=== PATIENT | male | born 1980 | race African-American/Black ===

== ENCOUNTER 2017-08-17 12:48 | Emergency (ER) | payer SELFPAY ==
[2017-08-17] MEDS ORDERED: Lidocaine/EPINEPHrine/Tetracaine Soln 1 ML TOP ONE (13:03)
[2017-08-17] MEDS ORDERED: Lidocaine 1% with EPINEPHrine 1:100,000 20 ML MDV INJECT ONE (13:03)
--- NOTE | 2017-08-17 14:03 | EDM.PDOC ---
ED HPI GENERAL MEDICAL PROBLEM - General Chief Complaint: Skin Complaint Stated Complaint: LUMP ON SIDE OF FACE Time Seen by Provider: 08/17/17 12:57 Source of Information: Reports: Patient History Limitations: Reports: No Limitations - History of Present Illness INITIAL COMMENTS - FREE TEXT/NARRATIVE: The patient presents with an abscess to the left jaw. This has been going on for 3 days. He had this drained before about a year and a half ago. He has no fever, chills Onset: Gradual Duration: Day(s): (3) Location: Reports: Face (Left jaw) Quality: Reports: Sharp Severity: Moderate Improves with: Reports: None Worsens with: Reports: None Associated Symptoms: Reports: No Other Symptoms Left Face Pain Score (Numeric/FACES): 9 - Related Data Allergies Allergy/AdvReac Type Severity Reaction Status Date / Time No Known Allergies Allergy Verified 08/17/17 12:55 Home Meds: Home Meds Doxycycline [Vibramycin] 100 mg PO BID #20 cap 08/17/17 [Rx] Hydrocodone/Acetaminophen [Hydrocodon-Acetaminophen 5-325] 1 - 2 each PO Q6HR PRN #10 tablet 08/17/17 [Rx] Past Medical History - Past Health History Medical/Surgical History: Denies Medical/Surgical History Social & Family History - Tobacco Use Smoking Status *Q: Never Smoker - Caffeine Use Caffeine Use: Reports: Coffee - Recreational Drug Use Recreational Drug Use: No ED ROS GENERAL - Review of Systems Review Of Systems: See Below Constitutional: Reports: No Symptoms HEENT: Reports: Other (Left jaw abscess) Respiratory: Reports: No Symptoms Cardiovascular: Reports: No Symptoms Endocrine: Reports: No Symptoms GI/Abdominal: Reports: No Symptoms : Reports: No Symptoms ED EXAM, SKIN/RASH Exam: See Below Exam Limited By: No Limitations General Appearance: Alert, No Apparent Distress Ears: Normal External Exam Nose: Normal Inspection Throat/Mouth: Normal Inspection Head: Other (Abscess to the left jaw with fluctuance) Neck: Normal Inspection Respiratory/Chest: No Respiratory Distress, Lungs Clear, Normal Breath Sounds Cardiovascular: Regular Rate, Rhythm, No Edema, No Murmur GI/Abdominal: Soft, Non-Tender, No Organomegaly, No Mass Back Exam: Normal Inspection Extremities: Normal Inspection Neurological: Alert, Oriented, No Motor/Sensory Deficits ED SKIN PROCEDURES - I&D Site: Left jaw Skin Prep: Saline Local Anesthesia: Lidocaine: 1% with EPI (and LET) Local Anesthetic Volume: 2cc Area Incised With: 11 Blade Drainage: Purulent, Large Amount Probed to Break Up Loculations: Yes Packed With: 1/2 in. Iodoform Complications: No Course - Vital Signs Last Recorded V/S: Last Vital Signs Temp 97.5 F 08/17/17 12:52 Pulse 57 L 08/17/17 12:52 Resp 16 08/17/17 12:52 BP 123/87 08/17/17 12:52 Pulse Ox 99 08/17/17 12:52 - Orders/Labs/Meds Meds: Medications Discontinued Medications Generic Name Dose Route Start Last Admin Trade Name Freq PRN Reason Stop Dose Admin Lidocaine/Epinephrine 20 ml 08/17/17 13:03 08/17/17 13:14 Xylocaine 1% With Epinephrine 1:100,000 INJECT 08/17/17 13:04 20 ml ONETIME ONE Administration Lidocaine/Tetracaine 1 ml 08/17/17 13:03 08/17/17 13:14 Let Soln TOP 08/17/17 13:04 1 ml ONETIME ONE Administration - Re-Assessments/Exams Free Text/Narrative Re-Assessment/Exam: 08/17/17 14:08 I put some let on the abscess and then I used an 11 blade to open up the wound. I packed it. I will get him on some doxycycline and something for pain. Departure - Departure Time of Disposition: 14:10 Disposition: Home, Self-Care 01 Condition: Good Clinical Impression: Abscess - Discharge Information Prescriptions: Hydrocodone/Acetaminophen [Hydrocodon-Acetaminophen 5-325] 1 - 2 each PO Q6HR PRN #10 tablet PRN Reason: Pain Doxycycline [Vibramycin] 100 mg PO BID #20 cap Referrals: PCP,None [Primary Care Provider] - Oscar Briones MD [Physician] - 1 Week Forms: ED Department Discharge Additional Instructions: Put warm compresses on your face 3 times per day for 5 days. Keep the packing in for 3 to 5 days. It may come out then. Follow up with Dr Briones in 1 to 2 weeks. Take the doxycycline 2 times per day for 10 days. If you have pain, take the hydrocodone as needed. Wash your face with warm soapy water 2 times per day.
== END 2017-08-17 14:23 | disposition home or self-care (01) ==
LOC: JD.ED 12:48
DX: M27.2 Inflammatory conditions of jaws (principal)
CPT/HCPCS: 10061; 87075; 87205; 99283; A9270; 10060; 87077; 87186

== ENCOUNTER 2017-11-01 17:06 | Emergency (ER) | payer SELFPAY ==
--- NOTE | 2017-11-01 18:25 | EDM.PDOC ---
ED HPI GENERAL MEDICAL PROBLEM - General Chief Complaint: Skin Complaint Stated Complaint: BITE ON RIGHT LEG Time Seen by Provider: 11/01/17 18:25 Source of Information: Reports: Patient History Limitations: Reports: No Limitations - History of Present Illness INITIAL COMMENTS - FREE TEXT/NARRATIVE: 37-year-old male presents the ED with a painful swelling on the right lateral thigh. He states this was noted at least 3-1/2 days ago and is progressively enlarging and is becoming much more painful. He is not sure if he suffered a spider bite or what the cause of injury was. He doesn't feel systemically ill with fever chills. Just at the area is very painful especially if it gets bumped. Has had no previous similar problems. His knowledge he is not immunocompromised. Onset: Gradual Onset Date: 10/29/17 Duration: Day(s):, Getting Worse Location: Reports: Upper Extremity, Right (Right lateral mid thigh) Quality: Reports: Ache, Pressure, Throbbing Severity: Moderate (8 out of 10) Improves with: Reports: None Worsens with: Reports: Other, Movement Context: Denies: Activity, Exercise (It if the area gets bumped.), Lifting, Sick Contact, Other Associated Symptoms: Reports: No Other Symptoms. Denies: Fever/Chills, Headaches, Loss of Appetite, Malaise, Nausea/Vomiting, Rash, Seizure, Shortness of Breath, Syncope, Weakness Treatments [employer]ATOR: Reports: NSAIDS Right Upper Posterior Leg Pain Score (Numeric/FACES): 7 - Related Data Allergies Allergy/AdvReac Type Severity Reaction Status Date / Time No Known Allergies Allergy Verified 11/01/17 17:38 Home Meds: Home Meds Clindamycin HCl 300 mg PO TID #21 capsule 11/01/17 [Rx] Doxycycline [Vibramycin] 100 mg PO DAILY #24 cap 11/01/17 [Rx] oxyCODONE HCl/Acetaminophen [Percocet 5-325 mg Tablet] 1 - 2 each PO Q4H PRN # 15 tablet 11/01/17 [Rx] Past Medical History - Past Health History Medical/Surgical History: Denies Medical/Surgical History - Past Surgical History Other Musculoskeletal Surgeries/Procedures:: Hand surgeries- metal plate inserted Social & Family History - Family History Family Medical History: Noncontributory - Tobacco Use Smoking Status *Q: Never Smoker - Caffeine Use Caffeine Use: Reports: Coffee - Recreational Drug Use Recreational Drug Use: No - Living Situation & Occupation Living situation: Reports: Single Occupation: Employed ED ROS GENERAL - Review of Systems Review Of Systems: See Below Constitutional: Denies: Fever, Chills, Malaise, Weakness, Decreased Appetite HEENT: Reports: No Symptoms Respiratory: Reports: No Symptoms Cardiovascular: Reports: No Symptoms Endocrine: Reports: No Symptoms GI/Abdominal: Reports: No Symptoms : Reports: No Symptoms Musculoskeletal: Reports: Other Skin: Reports: Rash (Painful lesion right lateral mid thigh. Painful lesion right lateral thigh which is erythematous and very painful.) Neurological: Reports: No Symptoms Psychiatric: Reports: No Symptoms Hematologic/Lymphatic: Reports: No Symptoms Immunologic: Reports: No Symptoms ED EXAM, SKIN/RASH Exam: See Below Exam Limited By: No Limitations General Appearance: Alert, WD/WN, No Apparent Distress, Other (Vital signs are normal.) Extremities: Other (Examination of his right thigh reveals a erythematous warm abscess. The abscess is approximately 3 cm in diameter and is taut but is not actively draining or pointing. Eyes the ultrasound to explored further there is a abscess under the skin that would probably contained 5 mils of pus.) Neurological: Alert, Oriented, CN II-XII Intact, Normal Cognition, Normal Gait Psychiatric: Normal Affect, Normal Mood Skin: Warm, Dry, Intact, Normal Color, No Rash Location, Skin: Lower Extremity, Right (Right lateral mid thigh.) Characteristics: Erythematous Associated features: Warmth, Tenderness, Swelling ED SKIN PROCEDURES - I&D Skin Prep: Chlorhexidine (Hibiciens) Local Anesthesia - Bupivicaine (Marcaine): 0.5% Plain Local Anesthetic Volume: 4cc Area Incised With: 15 Blade Drainage: Purulent Probed to Break Up Loculations: Yes (Proximally 5 mils. Cultures obtained) Packed With: Other (Half-inch saline soaked Tubegauze packed --4 inches.) Sterile Dressing: Adhesive Dressing, 4x4(s) Complications: No Course - Vital Signs Last Recorded V/S: Last Vital Signs Temp 36.6 C 11/01/17 17:35 Pulse 60 11/01/17 17:35 Resp 16 11/01/17 17:35 BP 105/74 11/01/17 17:35 Pulse Ox 98 11/01/17 17:35 - Orders/Labs/Meds Orders: Active Orders 24 hr Category Date Time Status Peripheral IV Care [RC] . DIRECTED Care 11/01/17 18:43 Active CULTURE WOUND [RM] Stat Lab 11/01/17 20:19 Ordered Peripheral IV Insertion Adult [OM.PC] Stat Oth 11/01/17 18:43 Ordered Meds: Medications Discontinued Medications Generic Name Dose Route Start Last Admin Trade Name Freq PRN Reason Stop Dose Admin Bupivacaine HCl 10 ml 11/01/17 18:34 11/01/17 19:17 Sensorcaine-Mpf 0.5% INJECT 11/01/17 18:35 10 ml ONETIME ONE Administration Doxycycline Hyclate 200 mg 11/01/17 19:28 11/01/17 20:12 Vibramycin PO 11/01/17 19:29 200 mg ONETIME ONE Administration Fentanyl 100 mcg 11/01/17 18:44 11/01/17 19:18 Sublimaze IVPUSH 11/01/17 18:45 Not Given ONETIME ONE Ceftriaxone Sodium 2 gm/ 100 mls @ 100 mls/hr 11/01/17 18:43 11/01/17 19:16 Sodium Chloride IV 11/01/17 19:42 100 mls/hr ONETIME ONE Administration Midazolam HCl 5 mg 11/01/17 18:44 11/01/17 18:56 Versed 1 Mg/Ml IVPUSH 11/01/17 18:45 Not Given ONETIME ONE Midazolam HCl 5 mg 11/01/17 18:55 11/01/17 19:19 Versed 1 Mg/Ml IVPUSH 11/01/17 18:56 Not Given ONETIME ONE Sodium Chloride 10 ml 11/01/17 18:43 Saline Flush FLUSH ASDIRECTED PRN Keep Vein Open - Radiology Interpretation Free Text/Narrative:: 37-year-old male presents to the ED with a painful raised lesion on the right lateral thigh. States it's been getting worse over the last 3 and half days. Is concerned that he may have been bitten by a spider to cause this. However this appears to be just a simple staph aureus abscess. He had no previous wound to the area that he knows about. His similar problem's. He is not a diabetic. Ultrasound reveals a pocket or an abscess within it that likely contains 5 mils of pus or more. He is willing to have it incised and drained and therefore I will's get the nurse to set up this type of procedure. Marcaine 0.5% will be utilized to anesthetize the area. Plan will be to pack it with saline soaked tube gauze for 48 hours. - Re-Assessments/Exams Free Text/Narrative Re-Assessment/Exam: 11/01/17 19:31 patient tolerated the procedure very well. Used 4mls of 0.5% bupivacaine 0.5% to anesthetize the abscess. Incised with a 1.5 cm cut using 15 blade. The wound was then opened up with a curved hemostat down to 2.5 cm depth. Cultures obtained of the. The material that exuded from the wound. I then irrigated the wound aggressively with approximate 40 mils of saline. It was then packed with 4 inches of saline soaked Tubegauz to keep the wound open for 48 hours. Patient will receive Rocephin 2 g intravenously and doxycycline 200 mg orally. He will then be discharged home on doxycycline 100 mg twice daily for the next 12 days and clindamycin 300 mg 3 times a day for one week. Percocet tabs 5/3/25 milligrams one or 2 every 4-6 hours needed for pain relief 15 tablets. He is to remove the packing on his own in 48 hours time. Apply topical antibiotic such as bacitracin or Polysporin to the wound and cover with a bandage to keep clean until it heals. Departure - Departure Time of Disposition: 20:05 Disposition: Home, Self-Care 01 Clinical Impression: Abscess of right thigh - Discharge Information Prescriptions: Clindamycin HCl 300 mg PO TID #21 capsule Doxycycline [Vibramycin] 100 mg PO DAILY #24 cap oxyCODONE HCl/Acetaminophen [Percocet 5-325 mg Tablet] 1 - 2 each PO Q4H PRN # 15 tablet PRN Reason: pain relief. Instructions: Skin Abscess, Incision and Drainage Referrals: PCP,None [Primary Care Provider] - Forms: ED Department Discharge Additional Instructions: Evaluation the emergency room today in regards to an abscess that has formed in the right lateral thigh. No obvious reason for this abscess to formed is appreciated. Treated by incision and drainage of the abscess under local anesthetic. Wound of 1.5 cm in length was made and obtained at least 5 mils of purulent material. Cultures were obtained. He received initial dose of antibiotic in the emergency room Rocephin 2 g intravenously and doxycycline 200 mg orally. Initial dressing to remain in place for the next 48 hours. After that you can remove his dressing and remove the packing in 2 days time. After this and the wound is to be dressed with topical antibiotic such as bacitracin or Polysporin and covered with a bandage to keep clean. Swelling should be much improved as should the pain in 48 hours time. Need to take antibiotics doxycycline 100 mg twice daily for 12 days to clean up infection completely as well as clindamycin 300 mg 3 times daily for 7 days to clear up infection. Percocet tabs May be used 1 or 2 every 4-6 hours needed for pain relief for the next couple of days. After that Motrin 600 mg every 6 hours if needed for pain relief may be utilized. Return to medical care if any problems occur. - My Orders Last 24 Hours: My Active Orders 11/01/17 18:43 Peripheral IV Care [RC] . DIRECTED Peripheral IV Insertion Adult [OM.PC] Stat 11/01/17 20:19 CULTURE WOUND [RM] Stat - Assessment/Plan Last 24 Hours: My Active Orders 11/01/17 18:43 Peripheral IV Care [RC] . DIRECTED Peripheral IV Insertion Adult [OM.PC] Stat 11/01/17 20:19 CULTURE WOUND [RM] Stat
[2017-11-01] MEDS ORDERED: Bupivacaine 0.5% 10 ML SDV INJECT ONE (18:34)
[2017-11-01] MEDS ORDERED: Sodium Chloride 0.9% 10 ML Syringe FLUSH PRN (18:43)
[2017-11-01] MEDS ORDERED: cefTRIAXone 2 GM in Sodium Chloride 0.9% 100 ML IV ONE (18:43)
[2017-11-01] MEDS ORDERED: fentaNYL 100 MCG/2 ML SDV IVPUSH ONE (18:44)
[2017-11-01] MEDS ORDERED: Midazolam 1 MG/ML 5 ML SDV IVPUSH ONE (18:44)
[2017-11-01] MEDS ORDERED: Midazolam 1 MG/ML 2 ML SDV IVPUSH ONE (18:55)
[2017-11-01] MEDS ORDERED: Doxycycline 100 MG Cap PO ONE (19:28)
== END 2017-11-01 20:17 | disposition home or self-care (01) ==
LOC: JD.ED 17:06
DX: L02.415 Cutaneous abscess of right lower limb (principal)
CPT/HCPCS: 10060; 87070; 96365; 99283; A9270; J0696; J7030